=== PATIENT | female | born 1945 | race Caucasian/White ===

== ENCOUNTER 2020-12-27 17:22 | Inpatient (IN) | payer OTHER, MEDICAID, SELFPAY ==
[~2020-12-27] VITALS: Ht 157.5 cm; Wt 44.8 kg
[~2020-12-27 17:22] MED LIST: SULF1TAB48 PO
[2020-12-27 17:25] VITALS: BP_SYST 136
[2020-12-27 18:35] LABS: BASOPHILS % (AUTO) 0.8 % (0.0-2.0); EOSINOPHILS # (AUTO) 0.1 K/uL (0.0-0.4); EOSINOPHILS % (AUTO) 2.5 % (0.0-4.0); HEMATOCRIT 31.9 % (36-48); HEMOGLOBIN 10.5 g/dL (12.0-16.0); LYMPHOCYTES # (AUTO) 1.4 K/uL (1.0-5.5); LYMPHOCYTES % (AUTO) 30.8 % (20.5-51.5); MEAN CORPUSCULAR HEMOGLOBIN 28 pg (27-31); MEAN CORPUSCULAR HGB CONC 33 % (32-36); MEAN CORPUSCULAR VOLUME 85 fL (79.0-98.0); MONOCYTES # (AUTO) 0.5 K/uL (0.0-1.0); MONOCYTES % (AUTO) 10.5 % (1.7-9.3); NEUTROPHILS # (AUTO) 2.5 K/uL (1.8-7.7); NEUTROPHILS % (AUTO) 55.4 % (40.0-70.0); PLATELET COUNT (AUTO) 264 K/uL (130-430); RED BLOOD CELL COUNT(AUTO) 3.74 MIL/uL (4.2-6.2); RED CELL DISTRIBUTION WIDTH 17.7 % (9.0-15.0); WHITE BLOOD COUNT (AUTO) 4.5 K/uL (4.8-10.8)
[2020-12-27 18:52] LABS: ANION GAP 5 (5-15); CALCIUM 8.6 mg/dL (8.4-11.0); CHLORIDE 107 mmol/L (98-107); CREATININE 0.82 mg/dL (0.55-1.30); GLUCOSE 100 mg/dL (70-99); POTASSIUM 3.7 mmol/L (3.5-5.1); SODIUM SERUM 141 mmol/L (136-145); UREA NITROGEN, BLOOD 19 mg/dL (8-21)
[2020-12-27 18:57] LABS: ALANINE AMINOTRANSFERASE 23 U/L (12-78); ALBUMIN 2.8 g/dL (3.4-4.8); ASPARTATE AMINOTRANSFERASE 29 U/L (10-37); LIPASE 140 U/L (73-393); TOTAL BILIRUBIN 0.2 mg/dL (0.0-1.0)
[2020-12-27 20:37] LABS: BILIRUBIN,URINE NEGATIVE (NEGATIVE); BLOOD, URINE NEGATIVE (NEGATIVE); CLARITY/URINE CLEAR (CLEAR); COLOR,URINE YELLOW (YELLOW); GLUCOSE,URINE NEGATIVE (NEGATIVE); KETONES,URINE NEGATIVE (NEGATIVE); LEUKOCYTE ESTERASE ,URINE TRACE (NEGATIVE); NITRITE, URINE NEGATIVE (NEGATIVE); PROTEIN URINE NEGATIVE (NEGATIVE); UROBILINOGEN,URINE 0.2 (0.2-1.0)
[2020-12-27 20:54] LABS: BACTERIA,URINE FEW /HPF (None Seen); MUCUS,URINE 1+ /LPF (None Seen); RBC,URINE 0-3 /HPF (0-3); YEAST,URINE Moderate /HPF (None Seen)
[2020-12-27] MEDS ORDERED: cefTRIAXone 1 GM in D5W 50 ML IV ONE (21:00)
[2020-12-27] MEDS ORDERED: cefTRIAXone 1 GM VIAL ONE (21:23)
[2020-12-27] MEDS ORDERED: cefTRIAXone 1 GM VIAL IM ONE (21:30)
[2020-12-28 00:23] VITALS: BP_SYST 132
[2020-12-28] MEDS: D5/0.45 NS 1,000 ML IV SCH ×3 (00:48→19:00)
[2020-12-28] MEDS ORDERED: HYDROcodone/ACETAMIN 5-325 MG TAB (NORCO/ VICODIN) PO PRN (06:15)
[2020-12-28] MEDS ORDERED: ONDANSETRON HCL 4 MG/2 ML VIAL IVP PRN (06:15)
[2020-12-28] MEDS ORDERED: NALOXONE HCL 0.4 MG/ML AMP (NARCAN) IVP PRN ×2 (06:15)
[2020-12-28] MEDS ORDERED: HYDROcodone/ACETAMIN 10-325 MG TAB PO PRN (06:15)
[2020-12-28 08:00] VITALS: BP_SYST 122
[2020-12-28 08:07] LABS: ANION GAP 11 (5-15); CALCIUM 8.8 mg/dL (8.4-11.0); CHLORIDE 104 mmol/L (98-107); CREATININE 0.56 mg/dL (0.55-1.30); GLUCOSE 94 mg/dL (70-99); POTASSIUM 3.6 mmol/L (3.5-5.1); SODIUM SERUM 138 mmol/L (136-145); UREA NITROGEN, BLOOD 13 mg/dL (8-21)
[2020-12-28 08:08] LABS: BASOPHILS % (AUTO) 0.5 % (0.0-2.0); EOSINOPHILS # (AUTO) 0.1 K/uL (0.0-0.4); EOSINOPHILS % (AUTO) 1.2 % (0.0-4.0); HEMATOCRIT 32.9 % (36-48); HEMOGLOBIN 10.9 g/dL (12.0-16.0); LYMPHOCYTES # (AUTO) 1.2 K/uL (1.0-5.5); LYMPHOCYTES % (AUTO) 21.8 % (20.5-51.5); MEAN CORPUSCULAR HEMOGLOBIN 28 pg (27-31); MEAN CORPUSCULAR HGB CONC 33 % (32-36); MEAN CORPUSCULAR VOLUME 85 fL (79.0-98.0); MONOCYTES # (AUTO) 0.6 K/uL (0.0-1.0); MONOCYTES % (AUTO) 10.6 % (1.7-9.3); NEUTROPHILS # (AUTO) 3.8 K/uL (1.8-7.7); NEUTROPHILS % (AUTO) 65.9 % (40.0-70.0); PLATELET COUNT (AUTO) 267 K/uL (130-430); RED BLOOD CELL COUNT(AUTO) 3.87 MIL/uL (4.2-6.2); RED CELL DISTRIBUTION WIDTH 17.6 % (9.0-15.0); WHITE BLOOD COUNT (AUTO) 5.7 K/uL (4.8-10.8)
[2020-12-28 08:14] LABS: ALANINE AMINOTRANSFERASE 23 U/L (12-78); ALBUMIN 2.8 g/dL (3.4-4.8); ASPARTATE AMINOTRANSFERASE 30 U/L (10-37)
[2020-12-28 08:17] LABS: TOTAL BILIRUBIN 0.4 mg/dL (0.0-1.0)
[2020-12-28 08:58] LABS: C-REACTIVE PROTEIN QUANT 2.5 mg/dL (0-0.5)
[2020-12-28 09:22] LABS: ERYTHROCYTE SEDIMENTATION RATE 18 MM/HR (0-20)
[2020-12-28] MEDS: FLUCONAZOLE 100 mg/ NS 50 ML IV SCH (11:00)
[2020-12-28 12:00] VITALS: BP_SYST 139
[2020-12-28 16:00] VITALS: BP_SYST 142
[2020-12-28 19:00] VITALS: BP_SYST 135
[2020-12-28 20:00] VITALS: BP_SYST 135
[2020-12-28] MEDS: cefTRIAXone 1 GM IVPB PREMIX 50 ML IV SCH (21:14)
[2020-12-28] MEDS: LORazepam 2 MG/ML VIAL IVP PRN (22:12)
[2020-12-29 00:44] VITALS: BP_SYST 136
[2020-12-29] MEDS: NORMAL SALINE 5 ML DISP.SYRIN IVF SCH ×3 (05:10→21:12)
[2020-12-29 06:54] LABS: BASOPHILS % (AUTO) 0.6 % (0.0-2.0); EOSINOPHILS # (AUTO) 0.1 K/uL (0.0-0.4); EOSINOPHILS % (AUTO) 1.1 % (0.0-4.0); HEMATOCRIT 31.4 % (36-48); HEMOGLOBIN 10.5 g/dL (12.0-16.0); LYMPHOCYTES # (AUTO) 1.4 K/uL (1.0-5.5); LYMPHOCYTES % (AUTO) 22.9 % (20.5-51.5); MEAN CORPUSCULAR HEMOGLOBIN 28 pg (27-31); MEAN CORPUSCULAR HGB CONC 33 % (32-36); MEAN CORPUSCULAR VOLUME 85 fL (79.0-98.0); MONOCYTES # (AUTO) 0.8 K/uL (0.0-1.0); MONOCYTES % (AUTO) 12.3 % (1.7-9.3); NEUTROPHILS % (AUTO) 63.1 % (40.0-70.0); PLATELET COUNT (AUTO) 269 K/uL (130-430); RED BLOOD CELL COUNT(AUTO) 3.69 MIL/uL (4.2-6.2); RED CELL DISTRIBUTION WIDTH 17.7 % (9.0-15.0); WHITE BLOOD COUNT (AUTO) 6.3 K/uL (4.8-10.8)
[2020-12-29 07:15] LABS: ANION GAP 7 (5-15); CALCIUM 8.6 mg/dL (8.4-11.0); CHLORIDE 104 mmol/L (98-107); CREATININE 0.67 mg/dL (0.55-1.30); GLUCOSE 90 mg/dL (70-99); POTASSIUM 3.6 mmol/L (3.5-5.1); SODIUM SERUM 138 mmol/L (136-145); UREA NITROGEN, BLOOD 15 mg/dL (8-21)
[2020-12-29 08:50] LABS: ERYTHROCYTE SEDIMENTATION RATE 16 MM/HR (0-20)
[2020-12-29] MEDS: FLUCONAZOLE 100 mg/ NS 50 ML IV SCH (10:41)
[2020-12-29 12:34] VITALS: BP_SYST 129; BP_SYST 150
[2020-12-29 17:02] VITALS: BP_SYST 124
[2020-12-29 20:00] VITALS: BP_SYST 148; BP_SYST 154
[2020-12-29] MEDS: cefTRIAXone 1 GM IVPB PREMIX 50 ML IV SCH (20:00)
[2020-12-30 02:05] VITALS: BP_SYST 126
[2020-12-30] MEDS: NORMAL SALINE 5 ML DISP.SYRIN IVF SCH ×3 (05:13→22:08)
[2020-12-30 08:30] VITALS: BP_SYST 126
[2020-12-30] MEDS: FLUCONAZOLE 100 mg/ NS 50 ML IV SCH (11:00)
[2020-12-30] MEDS ORDERED: MEMANTINE HCL 5 MG TABLET PO ONE (11:15)
[2020-12-30] MEDS ORDERED: QUEtiapine FUMARATE 25 MG TABLET PO ONE (11:15)
[2020-12-30 11:26] VITALS: BP_SYST 110
[2020-12-30] MEDS: ACETAMINOPHEN 325 MG TABLET PO PRN (12:25)
[2020-12-30 15:49] VITALS: BP_SYST 105
[2020-12-30 20:00] VITALS: BP_SYST 146
[2020-12-30] MEDS ORDERED: QUEtiapine FUMARATE 25 MG TABLET PO SCH (21:00)
[2020-12-30] MEDS: QUEtiapine FUMARATE 25 MG TABLET PO SCH (22:08)
[2020-12-30] MEDS: cefTRIAXone 1 GM IVPB PREMIX 50 ML IV SCH (22:09)
[2020-12-31] VITALS: BP_SYST 138
[2020-12-31] MEDS: NORMAL SALINE 5 ML DISP.SYRIN IVF SCH ×3 (05:14→21:35)
[2020-12-31 06:58] LABS: BASOPHILS # (AUTO) 0.1 K/uL (0.0-0.2); BASOPHILS % (AUTO) 0.8 % (0.0-2.0); EOSINOPHILS # (AUTO) 0.1 K/uL (0.0-0.4); EOSINOPHILS % (AUTO) 1.4 % (0.0-4.0); HEMATOCRIT 34.8 % (36-48); HEMOGLOBIN 11.3 g/dL (12.0-16.0); LYMPHOCYTES # (AUTO) 1.3 K/uL (1.0-5.5); LYMPHOCYTES % (AUTO) 21.7 % (20.5-51.5); MEAN CORPUSCULAR HEMOGLOBIN 28 pg (27-31); MEAN CORPUSCULAR HGB CONC 33 % (32-36); MEAN CORPUSCULAR VOLUME 86 fL (79.0-98.0); MONOCYTES # (AUTO) 0.9 K/uL (0.0-1.0); NEUTROPHILS # (AUTO) 3.9 K/uL (1.8-7.7); NEUTROPHILS % (AUTO) 62.1 % (40.0-70.0); PLATELET COUNT (AUTO) 339 K/uL (130-430); RED BLOOD CELL COUNT(AUTO) 4.03 MIL/uL (4.2-6.2); RED CELL DISTRIBUTION WIDTH 17.3 % (9.0-15.0); WHITE BLOOD COUNT (AUTO) 6.2 K/uL (4.8-10.8)
[2020-12-31 07:33] LABS: ALANINE AMINOTRANSFERASE 15 U/L (12-78); ALBUMIN 2.8 g/dL (3.4-4.8); ANION GAP 10 (5-15); ASPARTATE AMINOTRANSFERASE 21 U/L (10-37); CALCIUM 8.8 mg/dL (8.4-11.0); CHLORIDE 106 mmol/L (98-107); GLUCOSE 80 mg/dL (70-99); POTASSIUM 3.4 mmol/L (3.5-5.1); SODIUM SERUM 141 mmol/L (136-145); TOTAL BILIRUBIN 0.5 mg/dL (0.0-1.0); UREA NITROGEN, BLOOD 14 mg/dL (8-21)
[2020-12-31 08:00] VITALS: BP_SYST 138
[2020-12-31 08:03] LABS: C-REACTIVE PROTEIN QUANT 0.7 mg/dL (0-0.5)
[2020-12-31 08:36] LABS: ERYTHROCYTE SEDIMENTATION RATE 12 MM/HR (0-20)
[2020-12-31] MEDS: MEMANTINE HCL 5 MG TABLET PO SCH (09:56)
[2020-12-31] MEDS: QUEtiapine FUMARATE 25 MG TABLET PO SCH ×2 (09:56→21:31)
[2020-12-31] MEDS: FLUCONAZOLE 100 mg/ NS 50 ML IV SCH (10:05)
[2020-12-31] MEDS: LORazepam 2 MG/ML VIAL IVP PRN (10:39)
[2020-12-31 12:20] VITALS: BP_SYST 143
[2020-12-31] MEDS ORDERED: POTASSIUM CHLORIDE 20 MEQ TAB.PRT.SR PO ONE (12:45)
[2020-12-31 15:42] VITALS: BP_SYST 127
[2020-12-31 16:00] VITALS: BP_SYST 127
[2020-12-31 21:29] VITALS: BP_SYST 130
[2020-12-31] MEDS: cefTRIAXone 1 GM IVPB PREMIX 50 ML IV SCH (21:31)
[2021-01-01] VITALS: BP_SYST 96
[2021-01-01 03:08] LABS: BILIRUBIN,URINE NEGATIVE (NEGATIVE); BLOOD, URINE 2+ (NEGATIVE); COLOR,URINE YELLOW (YELLOW); GLUCOSE,URINE NEGATIVE (NEGATIVE); KETONES,URINE 1+ (NEGATIVE); LEUKOCYTE ESTERASE ,URINE TRACE (NEGATIVE); NITRITE, URINE NEGATIVE (NEGATIVE); PH,URINE 6.5 (5.0-8.0); PROTEIN URINE 1+ (NEGATIVE); UROBILINOGEN,URINE 0.2 (0.2-1.0)
[2021-01-01 03:11] LABS: CLARITY/URINE SLIGHTLY CLOUDY (CLEAR)
[2021-01-01 04:53] LABS: BACTERIA,URINE FEW /HPF (None Seen); RBC,URINE 20-50 /HPF (0-3)
[2021-01-01] MEDS: NORMAL SALINE 5 ML DISP.SYRIN IVF SCH ×3 (06:00→20:38)
[2021-01-01 06:05] LABS: BASOPHILS # (AUTO) 0.1 K/uL (0.0-0.2); BASOPHILS % (AUTO) 0.7 % (0.0-2.0); EOSINOPHILS # (AUTO) 0.2 K/uL (0.0-0.4); EOSINOPHILS % (AUTO) 2.6 % (0.0-4.0); HEMATOCRIT 34.4 % (36-48); HEMOGLOBIN 11.5 g/dL (12.0-16.0); LYMPHOCYTES # (AUTO) 2.1 K/uL (1.0-5.5); LYMPHOCYTES % (AUTO) 28.6 % (20.5-51.5); MEAN CORPUSCULAR HEMOGLOBIN 29 pg (27-31); MEAN CORPUSCULAR HGB CONC 34 % (32-36); MEAN CORPUSCULAR VOLUME 86 fL (79.0-98.0); MONOCYTES # (AUTO) 1.2 K/uL (0.0-1.0); MONOCYTES % (AUTO) 16.4 % (1.7-9.3); NEUTROPHILS # (AUTO) 3.7 K/uL (1.8-7.7); NEUTROPHILS % (AUTO) 51.7 % (40.0-70.0); PLATELET COUNT (AUTO) 341 K/uL (130-430); RED BLOOD CELL COUNT(AUTO) 4.01 MIL/uL (4.2-6.2); RED CELL DISTRIBUTION WIDTH 17.8 % (9.0-15.0); WHITE BLOOD COUNT (AUTO) 7.2 K/uL (4.8-10.8)
[2021-01-01 06:17] LABS: ANION GAP 10 (5-15); CALCIUM 9.2 mg/dL (8.4-11.0); CHLORIDE 106 mmol/L (98-107); CREATININE 0.59 mg/dL (0.55-1.30); GLUCOSE 88 mg/dL (70-99); POTASSIUM 3.7 mmol/L (3.5-5.1); SODIUM SERUM 140 mmol/L (136-145); UREA NITROGEN, BLOOD 14 mg/dL (8-21)
[2021-01-01] MEDS: ACETAMINOPHEN 325 MG TABLET PO PRN (06:32)
[2021-01-01 06:41] LABS: C-REACTIVE PROTEIN QUANT 1.7 mg/dL (0-0.5)
[2021-01-01 08:00] VITALS: BP_SYST 119
[2021-01-01] MEDS: QUEtiapine FUMARATE 25 MG TABLET PO SCH ×2 (08:33→20:35)
[2021-01-01] MEDS: MEMANTINE HCL 5 MG TABLET PO SCH (08:33)
[2021-01-01] MEDS: FLUCONAZOLE 100 mg/ NS 50 ML IV SCH (10:50)
[2021-01-01 12:25] VITALS: BP_SYST 116
[2021-01-01 16:29] VITALS: BP_SYST 114
[2021-01-01 20:00] VITALS: BP_SYST 127
[2021-01-01] MEDS: cefTRIAXone 1 GM IVPB PREMIX 50 ML IV SCH (20:35)
[2021-01-02] VITALS: BP_SYST 119
[2021-01-02] MEDS: NORMAL SALINE 5 ML DISP.SYRIN IVF SCH ×2 (05:31→14:43)
[2021-01-02 06:54] LABS: BASOPHILS % (AUTO) 0.5 % (0.0-2.0); EOSINOPHILS # (AUTO) 0.1 K/uL (0.0-0.4); EOSINOPHILS % (AUTO) 1.8 % (0.0-4.0); HEMATOCRIT 34.2 % (36-48); HEMOGLOBIN 11.2 g/dL (12.0-16.0); LYMPHOCYTES # (AUTO) 1.2 K/uL (1.0-5.5); LYMPHOCYTES % (AUTO) 15.4 % (20.5-51.5); MEAN CORPUSCULAR HEMOGLOBIN 28 pg (27-31); MEAN CORPUSCULAR HGB CONC 33 % (32-36); MEAN CORPUSCULAR VOLUME 86 fL (79.0-98.0); MONOCYTES # (AUTO) 0.7 K/uL (0.0-1.0); MONOCYTES % (AUTO) 8.4 % (1.7-9.3); NEUTROPHILS % (AUTO) 73.9 % (40.0-70.0); PLATELET COUNT (AUTO) 401 K/uL (130-430); RED BLOOD CELL COUNT(AUTO) 3.99 MIL/uL (4.2-6.2); RED CELL DISTRIBUTION WIDTH 17.6 % (9.0-15.0); WHITE BLOOD COUNT (AUTO) 8.1 K/uL (4.8-10.8)
[2021-01-02 07:25] LABS: ANION GAP 9 (5-15); CALCIUM 8.8 mg/dL (8.4-11.0); CHLORIDE 104 mmol/L (98-107); CREATININE 0.63 mg/dL (0.55-1.30); GLUCOSE 99 mg/dL (70-99); POTASSIUM 3.8 mmol/L (3.5-5.1); SODIUM SERUM 139 mmol/L (136-145); UREA NITROGEN, BLOOD 18 mg/dL (8-21)
[2021-01-02 07:36] LABS: C-REACTIVE PROTEIN QUANT 1.3 mg/dL (0-0.5)
[2021-01-02 08:00] VITALS: BP_SYST 136
[2021-01-02 08:22] LABS: ERYTHROCYTE SEDIMENTATION RATE 13 MM/HR (0-20)
[2021-01-02] MEDS: QUEtiapine FUMARATE 25 MG TABLET PO SCH ×2 (08:25→20:20)
[2021-01-02] MEDS: MEMANTINE HCL 5 MG TABLET PO SCH (08:25)
[2021-01-02 12:22] VITALS: BP_SYST 129
[2021-01-02] MEDS: FLUCONAZOLE 100 mg/ NS 50 ML IV SCH (12:27)
[2021-01-02 16:50] VITALS: BP_SYST 124
[2021-01-02 20:00] VITALS: BP_SYST 121
[2021-01-02] MEDS: cefTRIAXone 1 GM IVPB PREMIX 50 ML IV SCH (20:20)
[2021-01-02] MEDS: DOCUSATE SODIUM 100 MG/10 ML UDC PO SCH (20:20)
[2021-01-03] MEDS: NORMAL SALINE 5 ML DISP.SYRIN IVF SCH ×4 (00:05→21:30)
[2021-01-03 00:17] VITALS: BP_SYST 126
[2021-01-03] MEDS: LORazepam 2 MG/ML VIAL IVP PRN (01:33)
[2021-01-03 07:45] LABS: BASOPHILS # (AUTO) 0.1 K/uL (0.0-0.2); BASOPHILS % (AUTO) 0.7 % (0.0-2.0); EOSINOPHILS # (AUTO) 0.2 K/uL (0.0-0.4); EOSINOPHILS % (AUTO) 2.6 % (0.0-4.0); HEMOGLOBIN 11.9 g/dL (12.0-16.0); LYMPHOCYTES # (AUTO) 1.4 K/uL (1.0-5.5); LYMPHOCYTES % (AUTO) 18.3 % (20.5-51.5); MEAN CORPUSCULAR HEMOGLOBIN 28 pg (27-31); MEAN CORPUSCULAR HGB CONC 33 % (32-36); MEAN CORPUSCULAR VOLUME 86 fL (79.0-98.0); MONOCYTES # (AUTO) 0.8 K/uL (0.0-1.0); MONOCYTES % (AUTO) 10.5 % (1.7-9.3); NEUTROPHILS # (AUTO) 5.1 K/uL (1.8-7.7); NEUTROPHILS % (AUTO) 67.9 % (40.0-70.0); PLATELET COUNT (AUTO) 431 K/uL (130-430); RED CELL DISTRIBUTION WIDTH 17.4 % (9.0-15.0); WHITE BLOOD COUNT (AUTO) 7.5 K/uL (4.8-10.8)
[2021-01-03 08:00] VITALS: BP_SYST 119
[2021-01-03 08:03] LABS: ANION GAP 9 (5-15); CALCIUM 9.2 mg/dL (8.4-11.0); CHLORIDE 104 mmol/L (98-107); CREATININE 0.55 mg/dL (0.55-1.30); GLUCOSE 92 mg/dL (70-99); POTASSIUM 4.1 mmol/L (3.5-5.1); SODIUM SERUM 140 mmol/L (136-145); UREA NITROGEN, BLOOD 16 mg/dL (8-21)
[2021-01-03] MEDS: MEMANTINE HCL 5 MG TABLET PO SCH (08:14)
[2021-01-03] MEDS: QUEtiapine FUMARATE 25 MG TABLET PO SCH ×2 (08:14→21:30)
[2021-01-03] MEDS: DOCUSATE SODIUM 100 MG/10 ML UDC PO SCH ×2 (08:14→21:30)
[2021-01-03 09:02] LABS: ERYTHROCYTE SEDIMENTATION RATE 13 MM/HR (0-20)
[2021-01-03 09:08] LABS: C-REACTIVE PROTEIN QUANT 1.6 mg/dL (0-0.5)
[2021-01-03] MEDS: FLUCONAZOLE 100 mg/ NS 50 ML IV SCH (10:13)
[2021-01-03 12:22] VITALS: BP_SYST 108
[2021-01-03 13:12] VITALS: BP_SYST 106
[2021-01-03 16:35] VITALS: BP_SYST 119
[2021-01-03 20:00] VITALS: BP_SYST 120
[2021-01-03] MEDS: cefTRIAXone 1 GM IVPB PREMIX 50 ML IV SCH (21:30)
[2021-01-04 00:45] VITALS: BP_SYST 111
[2021-01-04] MEDS: NORMAL SALINE 5 ML DISP.SYRIN IVF SCH ×3 (05:18→22:09)
[2021-01-04 07:06] LABS: BASOPHILS % (AUTO) 0.6 % (0.0-2.0); EOSINOPHILS # (AUTO) 0.2 K/uL (0.0-0.4); HEMATOCRIT 35.9 % (36-48); HEMOGLOBIN 11.9 g/dL (12.0-16.0); LYMPHOCYTES # (AUTO) 1.8 K/uL (1.0-5.5); LYMPHOCYTES % (AUTO) 24.3 % (20.5-51.5); MEAN CORPUSCULAR HEMOGLOBIN 29 pg (27-31); MEAN CORPUSCULAR HGB CONC 33 % (32-36); MEAN CORPUSCULAR VOLUME 87 fL (79.0-98.0); MONOCYTES # (AUTO) 0.7 K/uL (0.0-1.0); MONOCYTES % (AUTO) 9.6 % (1.7-9.3); NEUTROPHILS # (AUTO) 4.8 K/uL (1.8-7.7); NEUTROPHILS % (AUTO) 62.5 % (40.0-70.0); PLATELET COUNT (AUTO) 452 K/uL (130-430); RED BLOOD CELL COUNT(AUTO) 4.13 MIL/uL (4.2-6.2); RED CELL DISTRIBUTION WIDTH 17.7 % (9.0-15.0); WHITE BLOOD COUNT (AUTO) 7.6 K/uL (4.8-10.8)
[2021-01-04 07:43] LABS: ALANINE AMINOTRANSFERASE 12 U/L (12-78); ALBUMIN 2.7 g/dL (3.4-4.8); ANION GAP 12 (5-15); ASPARTATE AMINOTRANSFERASE 17 U/L (10-37); CALCIUM 8.7 mg/dL (8.4-11.0); CHLORIDE 105 mmol/L (98-107); CREATININE 0.64 mg/dL (0.55-1.30); GLUCOSE 92 mg/dL (70-99); SODIUM SERUM 140 mmol/L (136-145); TOTAL BILIRUBIN 0.3 mg/dL (0.0-1.0); UREA NITROGEN, BLOOD 21 mg/dL (8-21)
[2021-01-04 07:51] VITALS: BP_SYST 107
[2021-01-04] MEDS: MEMANTINE HCL 5 MG TABLET PO SCH (08:01)
[2021-01-04] MEDS: DOCUSATE SODIUM 100 MG/10 ML UDC PO SCH ×2 (08:01→20:25)
[2021-01-04] MEDS: QUEtiapine FUMARATE 25 MG TABLET PO SCH ×2 (08:01→20:25)
[2021-01-04 08:14] LABS: C-REACTIVE PROTEIN QUANT 0.9 mg/dL (0-0.5)
[2021-01-04 08:23] LABS: ERYTHROCYTE SEDIMENTATION RATE 13 MM/HR (0-20)
[2021-01-04] MEDS: FLUCONAZOLE 100 mg/ NS 50 ML IV SCH (09:58)
[2021-01-04 12:19] VITALS: BP_SYST 110
[2021-01-04 15:29] VITALS: BP_SYST 110
[2021-01-04 20:00] VITALS: BP_SYST 127
[2021-01-05 00:40] VITALS: BP_SYST 121
[2021-01-05] MEDS: NORMAL SALINE 5 ML DISP.SYRIN IVF SCH ×2 (05:26→14:00)
[2021-01-05 07:09] LABS: ANION GAP 9 (5-15); CHLORIDE 104 mmol/L (98-107); CREATININE 0.61 mg/dL (0.55-1.30); GLUCOSE 83 mg/dL (70-99); POTASSIUM 3.9 mmol/L (3.5-5.1); SODIUM SERUM 140 mmol/L (136-145); UREA NITROGEN, BLOOD 18 mg/dL (8-21)
[2021-01-05 07:20] LABS: BASOPHILS # (AUTO) 0.1 K/uL (0.0-0.2); BASOPHILS % (AUTO) 0.9 % (0.0-2.0); EOSINOPHILS # (AUTO) 0.2 K/uL (0.0-0.4); EOSINOPHILS % (AUTO) 2.8 % (0.0-4.0); HEMATOCRIT 34.8 % (36-48); HEMOGLOBIN 11.4 g/dL (12.0-16.0); LYMPHOCYTES # (AUTO) 1.6 K/uL (1.0-5.5); LYMPHOCYTES % (AUTO) 24.5 % (20.5-51.5); MEAN CORPUSCULAR HEMOGLOBIN 29 pg (27-31); MEAN CORPUSCULAR HGB CONC 33 % (32-36); MEAN CORPUSCULAR VOLUME 87 fL (79.0-98.0); MONOCYTES # (AUTO) 0.7 K/uL (0.0-1.0); MONOCYTES % (AUTO) 10.8 % (1.7-9.3); NEUTROPHILS # (AUTO) 4.1 K/uL (1.8-7.7); PLATELET COUNT (AUTO) 452 K/uL (130-430); RED BLOOD CELL COUNT(AUTO) 4.01 MIL/uL (4.2-6.2); RED CELL DISTRIBUTION WIDTH 17.7 % (9.0-15.0); WHITE BLOOD COUNT (AUTO) 6.7 K/uL (4.8-10.8)
[2021-01-05 08:00] VITALS: BP_SYST 111
[2021-01-05 08:26] LABS: ERYTHROCYTE SEDIMENTATION RATE 14 MM/HR (0-20)
[2021-01-05] MEDS: MEMANTINE HCL 5 MG TABLET PO SCH (08:40)
[2021-01-05] MEDS: QUEtiapine FUMARATE 25 MG TABLET PO SCH ×2 (08:40→20:33)
[2021-01-05] MEDS: DOCUSATE SODIUM 100 MG/10 ML UDC PO SCH ×2 (08:41→20:33)
[2021-01-05] MEDS: FLUCONAZOLE 100 mg/ NS 50 ML IV SCH (11:35)
[2021-01-05 12:31] VITALS: BP_SYST 110
[2021-01-05 16:09] VITALS: BP_SYST 112
[2021-01-05 17:12] LABS: BILIRUBIN,URINE NEGATIVE (NEGATIVE); BLOOD, URINE 3+ (NEGATIVE); CLARITY/URINE HAZY (CLEAR); COLOR,URINE YELLOW (YELLOW); GLUCOSE,URINE NEGATIVE (NEGATIVE); KETONES,URINE NEGATIVE (NEGATIVE); LEUKOCYTE ESTERASE ,URINE 3+ (NEGATIVE); NITRITE, URINE NEGATIVE (NEGATIVE); PROTEIN URINE 2+ (NEGATIVE); UROBILINOGEN,URINE 0.2 (0.2-1.0)
[2021-01-05 17:13] LABS: RBC,URINE 20-50 /HPF (0-3); WBC,URINE 50-80 /HPF (0-3)
[2021-01-05 17:14] LABS: BACTERIA,URINE FEW /HPF (None Seen); MUCUS,URINE None Seen /LPF (None Seen)
[2021-01-05 20:00] VITALS: BP_SYST 111
[2021-01-06] VITALS: BP_SYST 98
[2021-01-06] MEDS: NORMAL SALINE 5 ML DISP.SYRIN IVF SCH ×4 (00:06→21:49)
[2021-01-06] MEDS ORDERED: COLL100 PO (04:06)
[2021-01-06] MEDS ORDERED: SER25 PO (04:06)
[2021-01-06] MEDS ORDERED: MEMA5TAB PO (04:06)
[2021-01-06 06:15] LABS: BASOPHILS # (AUTO) 0.1 K/uL (0.0-0.2); BASOPHILS % (AUTO) 0.8 % (0.0-2.0); EOSINOPHILS # (AUTO) 0.2 K/uL (0.0-0.4); EOSINOPHILS % (AUTO) 2.1 % (0.0-4.0); HEMATOCRIT 36.5 % (36-48); MEAN CORPUSCULAR HEMOGLOBIN 29 pg (27-31); MEAN CORPUSCULAR HGB CONC 33 % (32-36); MEAN CORPUSCULAR VOLUME 87 fL (79.0-98.0); MONOCYTES # (AUTO) 0.7 K/uL (0.0-1.0); MONOCYTES % (AUTO) 9.9 % (1.7-9.3); NEUTROPHILS # (AUTO) 4.5 K/uL (1.8-7.7); NEUTROPHILS % (AUTO) 60.2 % (40.0-70.0); PLATELET COUNT (AUTO) 485 K/uL (130-430); RED BLOOD CELL COUNT(AUTO) 4.22 MIL/uL (4.2-6.2); RED CELL DISTRIBUTION WIDTH 17.3 % (9.0-15.0); WHITE BLOOD COUNT (AUTO) 7.5 K/uL (4.8-10.8)
[2021-01-06 07:00] LABS: ANION GAP 8 (5-15); CALCIUM 9.3 mg/dL (8.4-11.0); CHLORIDE 104 mmol/L (98-107); CREATININE 0.55 mg/dL (0.55-1.30); GLUCOSE 88 mg/dL (70-99); POTASSIUM 4.8 mmol/L (3.5-5.1); SODIUM SERUM 139 mmol/L (136-145); UREA NITROGEN, BLOOD 17 mg/dL (8-21)
[2021-01-06 08:00] VITALS: BP_SYST 124
[2021-01-06] MEDS: QUEtiapine FUMARATE 25 MG TABLET PO SCH ×2 (08:08→20:06)
[2021-01-06] MEDS: DOCUSATE SODIUM 100 MG/10 ML UDC PO SCH ×2 (08:08→20:06)
[2021-01-06] MEDS: MEMANTINE HCL 5 MG TABLET PO SCH (08:08)
[2021-01-06 09:17] LABS: ERYTHROCYTE SEDIMENTATION RATE 14 MM/HR (0-20)
[2021-01-06 12:52] VITALS: BP_SYST 121
[2021-01-06 17:41] VITALS: BP_SYST 124
[2021-01-06 20:00] VITALS: BP_SYST 111
[2021-01-06] MEDS: CEFEPIME 0.5 GM in D5W 50 ML IV SCH (20:06)
[2021-01-07] VITALS: BP_SYST 122
[2021-01-07 05:53] VITALS: BP_SYST 111; BP_SYST 122
[2021-01-07] MEDS: NORMAL SALINE 5 ML DISP.SYRIN IVF SCH (06:34)
[2021-01-07 06:49] VITALS: BP_SYST 122
[2021-01-07 08:00] VITALS: BP_SYST 118
[2021-01-07] MEDS: ACETAMINOPHEN 325 MG TABLET PO PRN (08:15)
[2021-01-07] MEDS: DOCUSATE SODIUM 100 MG/10 ML UDC PO SCH (08:16)
[2021-01-07] MEDS: QUEtiapine FUMARATE 25 MG TABLET PO SCH (08:16)
[2021-01-07] MEDS: MEMANTINE HCL 5 MG TABLET PO SCH (08:16)
[2021-01-07] MEDS: CEFEPIME 0.5 GM in D5W 50 ML IV SCH (08:17)
[2021-01-07 09:23] VITALS: BP_SYST 118
[2021-01-07 11:45] VITALS: BP_SYST 113
== END 2021-01-07 12:20 | DRG 871 ==
LOC: SED 17:22 → SMU 22:48
PROVIDERS: ADMIT Preventive Medicine Preventive Medicine/Occupational Environmental Medicine; ATTEND Preventive Medicine Preventive Medicine/Occupational Environmental Medicine
DX: A41.9 Sepsis, unspecified organism (principal); G93.41 Metabolic encephalopathy; N39.0 Urinary tract infection, site not specified; E44.0 Moderate protein-calorie malnutrition; Z68.1 Body mass index [BMI] 19.9 or less, adult; D64.9 Anemia, unspecified; K76.9 Liver disease, unspecified; N20.0 Calculus of kidney; F03.90 Unspecified dementia, unspecified severity, without behavioral disturbance, psychotic disturbance, mood disturbance, and anxiety; E88.09 Other disorders of plasma-protein metabolism, not elsewhere classified; R73.9 Hyperglycemia, unspecified; N28.1 Cyst of kidney, acquired; N32.0 Bladder-neck obstruction; F29 Unspecified psychosis not due to a substance or known physiological condition; R33.9 Retention of urine, unspecified; E87.6 Hypokalemia; M47.894 Other spondylosis, thoracic region; M47.892 Other spondylosis, cervical region; Z20.822 Contact with and (suspected) exposure to COVID-19; R53.81 Other malaise; D47.3 Essential (hemorrhagic) thrombocythemia; Z87.440 Personal history of urinary (tract) infections; Z87.442 Personal history of urinary calculi; Z78.1 Physical restraint status
CPT/HCPCS: 36415; 70450-TC; 72125-TC; 72128; 76376; 80048; 80053; 81000; 83690; 85025; 85651-TC; 86140; 87040-TC; 87081; 87086; 96365; 97110-GP; 97112-GP; 97116-GP; 97163; 97530-GP; 99285; J0692; J0696; J1450; J2060; J7060